=== PATIENT | male | born 1975 | race African-American/Black ===

== ENCOUNTER 2022-02-25 22:12 | Emergency (ER) | payer OTHER ==
[2022-02-25 22:28] VITALS: TEMP 98.1
[2022-02-25] MEDS ORDERED: LORazepam 2 MG/ML INJ IV STA (23:30)
[2022-02-25] MEDS ORDERED: cloNIDine HCL 0.2 MG TAB PO STA (23:38)
[2022-02-26 00:01] LABS: Basophils # (A) 0.1 k/uL (0-0.2); Basophils % (A) 1 %; Eosinophils # (A) 0.2 k/uL (0-0.7); Eosinophils % (A) 3 %; HCT 33.1 % (39.0-53.0); HGB 10.4 gm/dL (13.0-17.5); Lymphocytes # (A) 1.5 k/uL (1.0-4.8); Lymphocytes % (A) 24 %; MCH 29.9 pg (25.0-35.0); MCHC 31.3 g/dL (31.0-37.0); MCV 95.4 fL (80.0-100.0); Mean Platelet Volume 8.4; Monocytes # (A) 0.4 k/uL (0-1.0); Monocytes % (A) 7 %; Neutrophils # (A) 4.1 k/uL (1.3-7.7); Neutrophils % (A) 65 %; Platelet Count 226 k/uL (150-450); RBC 3.47 m/uL (4.30-5.90); RDW 15.5 % (11.5-15.5); WBC 6.3 k/uL (3.8-10.6)
--- NOTE | 2022-02-26 00:04 | CT ---
EXAMINATION TYPE: CT brain wo con DATE OF EXAM: 02/25/2022 COMPARISON: None HISTORY: seizure CT DLP: 1154.4 mGycm Automated exposure control for dose reduction was used. There is cerebral cortical atrophy. There is no mass effect or midline shift. No sign of intracranial hemorrhage. Calvarium is intact. Skull base is intact. There is normal aeration of the mastoid sinus es. There is some debris in the left external auditory canal. There is minimal mucosal thickening right ethmoid sinus. IMPRESSION: Cerebral atrophy. No acute intracranial abnormality.
--- NOTE | 2022-02-26 00:32 | ED ---
Seizure HPI - General Chief Complaint: Seizure Stated Complaint: seizure Time Seen by Provider: 02/25/22 23:29 Source: patient, EMS Mode of arrival: EMS Limitations: no limitations - History of Present Illness Initial Comments: This patient is a 46-year-old man arriving here from [facility], coming by ambulance after having had a seizure. The patient had stopped drinking 3-4 days ago. He has had previous seizures due to withdrawal b ut does not have seizure disorder. Patient did have a low level fall striking the right occipital area of his scalp. The seizure activity seemed to last 30- 60 seconds. It was generalized with no focal features. He states he has returned to baseline. He does have some headache, no neck pain. Denies other injuries. MD Complaint: seizure -: hour(s) Description of Episode: loss of consciousness, tonic-clonic movement -: second(s) Witnessed: yes - by bystander Trauma: Yes Seizure History: history of withdrawal seizures Place: other Possible Precipitating Event: alcohol withdrawal Associated Symptoms: other (Headache) Treatments Prior to Arrival: none - Related Data Home Medications Medication Instructions Recorded Confirmed Acetaminophen Tab [Tylenol] 650 mg PO Q4H PRN MDD 1950mg 02/25/22 02/25/22 Albuterol Sulfate [Proair Hfa] 2 puff INHALATION RT-QID PRN 02/25/22 02/25/22 Calcium/Magnesium/Vit D3/[place] 1 cap PO TID PRN 02/25/22 02/25/22 [Calcium-Mag Oxide-Vit D3 Sftgl] Chlorpheniramine Maleate 4 mg PO Q4H PRN 02/25/22 02/25/22 [Chlor-Trimeton] Ibuprofen [Motrin Ib] 600 mg PO Q6H PRN 02/25/22 02/25/22 Loperamide HCl [Imodium A-D] 4 mg PO QID PRN MDD 16mg 02/25/22 02/25/22 Multivitamins, Thera [Multivitamin 1 tab PO DAILY 02/25/22 02/25/22 (formulary)] Thiamine [Vitamin B-1] 100 mg PO DAILY 02/25/22 02/25/22 hydroCHLOROthiazide [Hydrodiuril] 25 mg PO DAILY 02/25/22 02/25/22 ondansetron HCL [Zofran] 8 mg PO Q6H PRN 02/25/22 02/25/22 traZODone HCL [Desyrel] 50 - 150 mg PO HS 02/25/22 02/25/22 Allergies Allergy/AdvReac Type Severity Reaction Status Date / Time No Known Allergies Allergy Verified 02/25/22 23:04 Review of Systems ROS Statement: Those systems with pertinent positive or pertinent negative responses have been documented in the HPI. ROS Other: All systems not noted in ROS Statement are negative. Constitutional: Denies: fever, chills, weakness Eyes: Denies: vision change Respiratory: Denies: cough, dyspnea Cardiovascular: Denies: chest pain, palpitations Gastrointestinal: Denies: abdominal pain, vomiting, diarrhea Genitourinary: Denies: dysuria, hematuria Musculoskeletal: Denies: back pain Skin: Denies: rash Neurological: Reports: headache. Denies: weakness, numbness, paresthesias, confusion Hematological/Lymphatic: Denies: easy bleeding Past Medical History Past Medical History: Hypertension History of Any Multi-Drug Resistant Organisms: None Reported Past Surgical History: Orthopedic Surgery Past Psychological History: No Psychological Hx Reported Smoking Status: Current every day smoker Past Alcohol Use History: Heavy Past Drug Use History: None Reported General Exam Limitations: no limitations General appearance: alert, in no apparent distress Head exam: Present: normocephalic, other (Approximately 5 cm diameter hematoma right occipital scalp. No palpable deformity.) Eye exam: Present: normal appearance, PERRL, EOMI. Absent: scleral icterus, conjunctival injection, nystagmus ENT exam: Present: normal oropharynx Neck exam: Present: normal inspection, full ROM. Absent: tenderness, meningismus Respiratory exam: Present: normal lung sounds bilaterally. Absent: respiratory distress, wheezes, rales, rhonchi, stridor, chest wall tenderness Cardiovascular Exam: Present: regular rate, normal rhythm, normal heart sounds. Absent: systolic murmur, diastolic murmur, rubs, gallop GI/Abdominal exam: Present: soft. Absent: distended, tenderness, guarding, rebound, rigid, mass Extremities exam: Present: normal inspection, normal capillary refill Back exam: Present: normal inspection. Absent: vertebral tenderness Neurological exam: Present: alert, oriented X3, CN II-XII intact. Absent: motor sensory deficit Skin exam: Present: warm, dry, intact, normal color. Absent: rash Course Vital Signs 02/25/22 02/25/22 02/25/22 22:14 22:18 23:00 Temperature 98.1 F Pulse Rate 94 78 Respiratory 18 16 Rate Blood Pressure 177/120 177/120 175/121 O2 Sat by Pulse 99 98 Oximetry 02/26/22 02/26/22 00:00 01:00 Temperature Pulse Rate 80 72 Respiratory 16 16 Rate Blood Pressure 172/132 170/99 O2 Sat by Pulse 99 99 Oximetry Medical Decision Making - Lab Data Result diagrams: 02/25/22 23:55 02/25/22 23:55 Lab Results 02/25/22 02/25/22 Range/Units 23:55 23:55 WBC 6.3 (3.8-10.6) k/uL RBC 3.47 L (4.30-5.90) m/uL Hgb 10.4 L (13.0-17.5) gm/dL Hct 33.1 L (39.0-53.0) % MCV 95.4 (80.0-100.0) fL MCH 29.9 (25.0-35.0) pg MCHC 31.3 (31.0-37.0) g/dL RDW 15.5 (11.5-15.5) % Plt Count 226 (150-450) k/uL MPV 8.4 Neutrophils % 65 % Lymphocytes % 24 % Monocytes % 7 % Eosinophils % 3 % Basophils % 1 % Neutrophils # 4.1 (1.3-7.7) k/uL Lymphocytes # 1.5 (1.0-4.8) k/uL Monocytes # 0.4 (0-1.0) k/uL Eosinophils # 0.2 (0-0.7) k/uL Basophils # 0.1 (0-0.2) k/uL Sodium 136 L (137-145) mmol/L Potassium 3.2 L (3.5-5.1) mmol/L Chloride 103 (98-107) mmol/L Carbon Dioxide 27 (22-30) mmol/L Anion Gap 6 mmol/L BUN 10 (9-20) mg/dL Creatinine 0.63 L (0.66-1.25) mg/dL Est GFR (CKD-EPI)AfAm >90 (>60 ml/min/1.73 sqM) Est GFR (CKD-EPI)NonAf >90 (>60 ml/min/1.73 sqM) Glucose 81 (74-99) mg/dL Calcium 8.4 (8.4-10.2) mg/dL Magnesium 1.5 L (1.6-2.3) mg/dL Total Bilirubin 0.4 (0.2-1.3) mg/dL AST 68 H (17-59) U/L ALT 44 (4-49) U/L Alkaline Phosphatase 80 (38-126) U/L Total Protein 6.4 (6.3-8.2) g/dL Albumin 3.6 (3.5-5.0) g/dL Serum Alcohol <10 mg/dL - EKG Data -: EKG Interpreted by Or EKG shows normal: sinus rhythm (Rate 93 bpm), axis (Normal), intervals (Normal), QRS complexes (Possible right ventricular conduction delay.) Interpretation: nonspecific ST-T wave changes Disposition Clinical Impression: Generalized seizure, Hypertension Disposition: HOME SELF-CARE Condition: Good Instructions (If sedation given, give patient instructions): Seizure/Epilepsy Discharge Instructions & Follow-Up, Hypertension (ED) Is patient prescribed a controlled substance at d/c from ED?: No Referrals: Nonstaff,Physician [Primary Care Provider] - 1-2 days Time of Disposition: 01:45
[2022-02-26 01:05] LABS: ALT 44 U/L (4-49); AST 68 U/L (17-59); African American GFR (CKD) >90 (>60 ml/min/1.73 sqM); Albumin 3.6 g/dL (3.5-5.0); Alcohol <10 mg/dL; Alkaline Phosphatase 80 U/L (38-126); Anion Gap 6 mmol/L; Blood Urea Nitrogen 10 mg/dL (9-20); Calcium 8.4 mg/dL (8.4-10.2); Carbon Dioxide 27 mmol/L (22-30); Chloride 103 mmol/L (98-107); Glucose 81 mg/dL (74-99); Magnesium 1.5 mg/dL (1.6-2.3); Non-African American GFR(CKD) >90 (>60 ml/min/1.73 sqM); Potassium 3.2 mmol/L (3.5-5.1); Sodium 136 mmol/L (137-145); Total Bilirubin 0.4 mg/dL (0.2-1.3); Total Protein 6.4 g/dL (6.3-8.2)
[2022-02-26 01:11] VITALS: BP 170/99; PULSE 72; RESP 16
[2022-02-26] MEDS ORDERED: METOPROLOL TARTRATE 5 MG/5 ML VIAL IVP STA (01:15)
[2022-02-26] MEDS ORDERED: MAGNESIUM OXIDE 400 MG TAB PO STA (01:59)
== END 2022-02-26 03:41 | disposition home or self-care (01) ==
LOC: EC 22:12
DX: R56.9 Unspecified convulsions (principal); I10 Essential (primary) hypertension; F17.200 Nicotine dependence, unspecified, uncomplicated
CPT/HCPCS: 36415; 93005; 80053; 83735; 85025; 70450; 99285; 96374; 96375; G0480; J2060; 80320